=== PATIENT | female | born 1980 | race Caucasian/White ===

== ENCOUNTER 2021-07-17 11:10 | Emergency (ER) | payer SELFPAY ==
--- OUTSIDE RECORDS SUMMARY | 2021-07-17 11:14 | XMS REPORT | Continuity of Care Document ---
:1980 Author Organization [facility] t Address [address] [place] [address] [place] [id number] Care Team Providers Name Role Phone PCP, DOES NOT HAVE A Primary Care Physician Unavailable [place] DO Attending Clinician WASHINGTON Attending Clinician Unavailable Doctor Unassigned, Name Attending Clinician Unavailable PATRICK CARTY Attending Clinician Unavailable GAN Attending Clinician Unavailable PATRICK CARTY Admitting Clinician Unavailable ELVIA Admitting Clinician Unavailable Payers Payer Name Policy Type Policy Number Effective Date Expiration Date S ource Problems Condition Condition Condition Status Onset Resolution Last Treating Co mments Source Name Details Category Date Date Treatment Clinician Date Pneumonia Pneumonia Problem [facility] (LUF/LI V/SA) Strain of Strain of Problem Active [facility] knee [facility] (LUF/LI V/SA) Backache Backache Problem [facility] V/SA) No known No known Disease Unive rs active active ity of problems problems [facility] Allergies, Adverse Reactions, Alerts Allergy Allergy Status Severity Reaction(s) Onset Inactive Treating Comm ents Source Name Type Date Date Clinician Etodolac Propensi Active Hives Univer s ty to -19 ity of adverse 00:00: [place] reaction 00 Medical s Branch Penicill Propensi Active Swelling Univ ers ins ty to 07-16 ity of adverse 00:00: [place] reaction 00 Medical s Branch Methocar Propensi Active Hives Univer s bamol ty to 19 ity of adverse 00:00: [place] reaction 00 Medical s Branch Ceftriax Propensi Active Nausea Univer s one ty to and/or 07-16 ity of adverse Vomiting 00:00: [place] reaction 00 Medical s Branch Sulfa Propensi Active Swelling Univer s (Sulfona ty to 07-16 ity of mide adverse 00:00: [place] Antibiot reaction 00 Medica l ics) s Branch Haloperi Propensi Active Other - See "makes m e Univers dol ty to comments 07-16 angry" ity of Lactate adverse 00:00: [place] reaction 00 Medical s Branch Levoflox Propensi Active Hives Univer s acin ty to 07-16 ity of adverse 00:00: [place] reaction 00 Medical s Branch CEFTRIAX DRUG Active Hives Univers ONE INGREDI -19 ity of 00:00: [place] 00 Medical Branch HALOPERI DRUG Active Other-Cmnt Univ ers DOL INGREDI -19 ity of LACTATE 00:00: [place] 00 Medical Branch METHOCAR DRUG Active Hives Univers BAMOL INGREDI -19 ity of 00:00: [place] 00 Medical Branch PENICILL Drug Active Swelling 0 Univer s INS Class 1-19 ity of 00:00: [place] 00 Medical Branch SULFA Drug Active Swelling 2021-0 Univers (SULFONA Class 1-19 ity of MIDE 00:00: [place] ANTIBIOT 00 Medical ICS) Branch ETODOLAC DRUG Active Hives Univers INGREDI 1-19 ity of 00:00: [place] 00 Medical Branch LEVOFLOX DRUG Active Hives 0 Univers ACIN INGREDI 1-19 ity of 00:00: [place] 00 Medical Branch Sulfa DA Active U [facility] (Sulfona 5[facility]12 [facility] mide 00:00: d Antibiot 00 Medical ics) Center haloperi DA Active U 2020-0 [facility] dol 5-12 [facility] 00:[facility]: d 00 [facility] methocar DA Active U 2020-0 [facility] bamol 5-12 [facility] 00:00: d 00 [facility] Center ceftriax DA Active U 2020-0 [facility] one -12 [facility] 00:00: d 00 [facility] levoflox DA Active U 2020-0 [facility] acin -12 [facility] 00:00: d 00 [facility] Center No Known DA Active U 2020-0 [facility] Allergie -12 [facility] 00:00: d 00 [facility] Center No Known DA Active U 2020-0 [facility] Allergie -12 [facility] 00:[facility]: d 00 [facility] Center Penicill DA Active U UNKOWN 2020-0 [facility] ins -12 [facility] 00:00: d 00 [facility] Sulfa DA Active U UNKOWN 2020-0 [facility] (Sulfona 11-06 [place] mide 00:00: d Antibiot 00 Medical ics) Center haloperi DA Active U UNKOWN 2020-0 [facility] dol -12 [facility] 00:00: d 00 [facility] methocar DA Active U UNKOWN 2020-0 [facility] bamol -12 [place] 00:00: d 00 [facility] ceftriax DA Active U UNKOWN 2020-0 [facility] one - [place] 00:00: d 00 [facility] levoflox DA Active U UNKOWN 2020-0 [facility] acin 5-12 [facility] 00:00: d 00 [facility] Center Penicill DA Active U 2020-0 [facility] ins - [place] 00:00: d 00 [facility] Center NO KNOWN Drug Active Univers ALLERGIE Class ity of S [facility] Levaquin DA Active Unknown [facility] ([facility]LI V/SA) Lodine DA Active Unknown [facility] (LUF/LI V/SA) Penicill DA Active [facility] (LUF/LI V/SA) Robaxin DA Active Unknown [facility] (LUF/LI V/SA) Rocephin DA Active Unknown [facility] (LUF/LI V/SA) Sulfa(Sanchez DA Active Unknown [facility] Antibiot l ics) (LUF/LI V/SA) Haldol DA Active Unknown [facility] (LUF/LI V/SA) Social History Social Habit Start Date Stop Date Quantity Comments Source Exposure to Not sure [facility] SARS-CoV-2 (event) Medica l [place] Sex Assigned At [birth year] [facility] 00:00:00 00:00:00 Medical Branch Smoking Status Start Date Stop Date Source Never sm[facility] (LUF/EULA/SA) Unknown if ever smoked [facility] Medical [place] Medications Ordered Filled Start Stop Current Ordering Indication Dosage Frequency Signature Comments Components Source Medication Medication Date Date Medication? Clinician (SIG) Name Name chlorphenir Yes [id number] 4mg Take 1 Univers amine 4 mg -19 tablet by ity of tablet 00:00: mouth [place] 00 every 6 Medical (six) Branch hours as needed for Allergies or Runny nose. calcium/mag Yes [id number] 1{each} Take 1 Univers nesium/zinc 1-19 Each by ity o f (CALCIUM-MA 00:00: mouth [place] GNESUIUM-ZI 00 daily. Medica l CO) Branch 333-133-5 mg Tab benzonatate Yes [id number] 100mg Take 1 Univers 100 mg -19 capsule by ity of capsule 00:00: mouth 3 [place] 00 (three) Medical times Branch daily as needed for Cough. vitamin 2021- Yes [id number] 1{tbl} Take 1 Univers D3-folic 1-19 -19 tablet by ity o f acid 125 00:00: 05:59 mouth [place] mcg (5,000 00 :00 daily for Medi afua unit)-1 mg 30 days. Branc h Tab prednisone prednisone Yes 40mg [facility] l (LUF/LI V/SA) prednisone prednisone Yes 40mg orally [facility] every [facility] - 00:[facility]: morning [facility] 00 (administe l r with (LUF/LI food or V/SA) milk) 72 HR 72 HR Yes [address] fentanyl fentanyl [facility] - 0.025 MG/HR 0.025 MG/HR M emoria Transdermal Transdermal l System System (LUF/LI V/SA) azithromyci azithromyci Yes 250mg 1xD [facility] n 250 MG n 250 MG [facility] - Oral Tablet Oral Tablet M emoria l (LUF/LI V/SA) azithromyci azithromyci Yes 250mg 1xD [facility] n 250 MG n 250 MG [facility] - Oral Tablet Oral Tablet M emoria l (LUF/LI V/SA) prednisone prednisone Yes 20mg 2xD [facility] 20 MG Oral 20 MG Oral Misael es - Tablet Tablet Memoria l (LUF/LI V/SA) 72 HR 72 HR Yes [address] [facility] fentanyl fentanyl lly every Nanci kes - 0.025 MG/HR 0.025 MG/HR 72 hours Memoria Transdermal Transdermal l System System (LUF/LI V/SA) azithromyci azithromyci Yes 250mg 1xD orally [facility] n 250 MG n 250 MG daily [facility] - Oral Tablet Oral Tablet (Take 2 Memoria tabs at l once on (LUF/LI day one, V/SA) followed by 1 tab daily for the following 4 days.) azithromyci azithromyci Yes 250mg 1xD orally [facility] n 250 MG n 250 MG daily [facility] - Oral Tablet Oral Tablet (Take 2 Memoria tabs at l once on (LUF/LI day one, V/SA) followed by 1 tab daily for the following 4 days.) prednisone prednisone Yes 20mg 2xD orally [address] 20 MG Oral 20 MG Oral times per [facility] - Tablet Tablet day Memoria l (LUF/LI V/SA) Vital Signs Vital Name Observation Time Observation Value Comments Source Systolic blood 2021-07-16 15:47:00 115 mm[facility]Hg[facility] Diastolic blood 2021-07-16 15:47:00 64 mm[Hg] [facility] Heart rate 2021-07-16 15:47:00 88 /min [facility] Body temperature 2021-07-16 15:47:00 36.67 [facility] Respiratory rate 2021-07-16 15:47:00 18 /min [facility] Body height 2021-07-16 15:47:00 152.4 cm [facility] Body weight 2021-07-16 15:47:00 58.968 kg [facility] BMI 2021-07-16 15:47:00 25.39 kg/m2 [facility] Oxygen saturation in 2021-07-16 15:47:00 99 /min [facility] blood by [facility] Pulse oximetry Branch Height 2020-07-06 15:12:00 152.4 CM Weight 2020-07-06 15:12:00 58.96 KG Height 2020 15:29:00 162.56 CM Weight 2020 15:29:00 61.23 KG Body Temperature 2020-07-06 15:12:00 99.7 [degF] [facility] (LUF/EULA/SA) Pulse Rate 2020-07-06 15:12:00 95 /min [facility] (LUF/EULA/SA) Respiratory Rate 2020-07-06 15:12:00 20 /min [facility] (F/EULA/SA) O2% BldC Oximetry 2020-07-06 15:12:00 100 % [facility] (LUF/EULA/SA) BP Systolic 2020-07-06 15:12:00 107 mm[Hg] [facility] (LUF/EULA/SA) BP Diastolic 2020-07-06 15:12:00 74 mm[Hg] [facility] (LUF/EULA/SA) Height 2020-07-06 15:12:00 60 [in_i] [facility] (LUF/EULA/SA) Weight 2020-07-06 15:12:00 130 [lb_av] [facility] (LUF/EULA/SA) BMI (Body Mass 2020-07-06 15:12:00 25.5 kg/m2 [facility] (LUF/EULA/SA) Body Temperature 2020 15:29:00 98.9 [degF] [facility] (LUF/EULA/SA) Pulse Rate 2020 15:29:00 90 /min [facility] (LUF/EULA/SA) Respiratory Rate 2020 15:29:00 19 /min [facility] (LUF/EULA/SA) O2% BldC Oximetry 2020 15:29:00 100 % [facility] ([facility]) BP Systolic 2020 15:29:00 108 mm[Hg] [facility] (LUF/EULA/SA) BP Diastolic 2020 15:29:00 74 mm[Hg] [facility] (LUF/EULA/SA) Height 2020 15:29:00 64 [in_i] [facility] (LUF/EULA/SA) Weight 2020 15:29:00 135 [lb_av] [facility] (LUF/EULA/SA) BMI (Body Mass 2020 15:29:00 23.3 kg/m2 [facility] (LUF/EULA/SA) Procedures Procedure Date / Time Performed Performing Clinician [facility] e NOTICE OF PRIVACY 2021-07-16 15:43:11 Doctor Unassigned, No Univ [facility] PRACTICES Name [facility] CONSENT/REFUSAL FOR 2021-07-16 15:39:54 Doctor Unassigned, No [facility] DI[facility]IS AND Name Medical Branch TREATMENT Encounters Start End Encounter Admission Attending Care Care Encounter Source Date/Time Date/Time Type Type Clinicians Facility Department ID 2020-11-06 Inpatient [facility] [id number] [facility] 07:23:00 [id number] [facility] 2021-07-16 2021-07-16 Emergency KEILY [place] [id number] Univers 09:47:00 10:23:00 Barbi SUBRAMANIAN [id number] i ty [facility] [id number] [facility] [id number] [facility] 084 Branch 2021-07-16 2021-07-16 Emergency X KEILY W[place] ERT [id number] Univers 09:47:00 10:23:00 BARBI [facility] 2021-07-16 2021-07-16 Orders Doctor JOSE [id number] Univers 00:00:00 00:00:00 Only Unassigned, SABINE [id number] ity of [facility] [id number] Wade as [id number] [place] [address] Branch 2020-07-06 2020-07-06 PNEUMONIA 1 AURA CARTY [facility] [id number] [facility] [address] 15:08:00 17:31:00 UNSPECIFIE [facility] WHALEN Lukes - D ORGANISM N, [address] [place], (LUF[place] [address] 2020-07-06 2020-07-06 Inpatient [facility] [id number] [facility] [address] 00:00:00 00:00:00 [facility] [id number] [facility] - N, [id number] [place]PASS, [place] [address] 2020-07-06 2020-07-06 Inpatient [facility] [id number] [facility] St 00:00:00 00:00:00 [facility] [id number] [facility] - N, [id number] l [place]PASS, ([place] [address] 2020 2020 JAMISON DAO [facility] [id number] [facility] [address] 15:18:00 17:04:00 [facility] WHALEN L ukes - PHARYNGITI N, [address] [place], (LUF/[place] [address] Results Test Description Test Time Test Comments Results Result Sour e Comments - CT ABD PELVIS 2020-11-06 W/CONT 09:53:00 [facility] 1980 Sex: F FAX: Jackson Schneider MD [place]: St: REG Name: LETICIA DAIGLE [facility] : 1980 Age/S: 40/F [address] [facility] Unit: [id number] [place]: [place]: [place] [id number] Acct: [id number] Dis Date: Status: REG ER PHONE #: [phone] Exam Date: 11/06/2020 0935 FAX #: [phone] Reason: Abd LUQ pain EXAMS: CPT CODE: [id number] CT ABD PELVIS W/CONT [id number] LOCATION: T18 EXAM: CT ABDOMEN AND PELVIS WITH CONTRAST INDICATION: Left upper quadrant abdominal pain COMPARISON: None. TECHNIQUE: Multiple CT images of the abdomen and pelvis were obtained with reconstructions in the coronal and sagittal planes. 100 ml of Isovue 300 was given intravenously. Up-to-date CT equipment and radiation dose reduction techniques were utilized. Automatic exposure control was utilized. FINDINGS: Lung bases are clear. Liver and spleen are normal in appearance. Adrenal glands and pancreas normal. Gallbladder removed. No biliary distention. Portal vasculature is patent. Kidneys enhance symmetrically. No focal abnormality or hydronephrosis. There is no hydroureter. Urinary bladder is normal in appearance. Uterus and adnexal structures are age-appropriate in appearance. Fluid within the right colon concerning for diarrheal process. Appendix is normal. No diverticulosis or evidence of colitis. No bowel obstruction is seen. Abdominal aorta is normal in caliber. IVC is normal. Bones are intact. Peripheral soft tissues are unremarkable. Posterior fixation of L4-L5 without complication. IMPRESSION: Fluid within the right colon concerning for diarrheal process. No diverticulosis or evidence of colitis. at 0953 Reported and signed by: Morteza Anthony M.D. PAGE 1 Signed Report (CONTINUED) FAX: Jackson Schenider MD [place]: St: REG Name: LETICIA DAIGLE [facility] : 1980 Age/S: 40/F [address] [facility] Unit: [id number] Loc: [place], [place]: [place] [id number] Acct: [id number] Dis Date: Status: REG ER PHONE #: [phone] Exam Date: 11/06/2020 0935 FAX #: [phone] Reason: Abd LUQ pain EXAMS: CPT CODE: [id number] CT ABD PELVIS W/CONT [id number] <Continued> CC: Jackson Schneider MD Technologist: FEDERICO MUNIZ Trnsoilard Dt/Tm: 11/06/2020 (0953) [email or web address] Orig Print D/T: S: 11/06/2020 (0956 PAGE 2 Signed Report DRUGS OF ABUSE SCREEN UR 2020-11-06 09:34:00 Test Item Value Reference Range Interpretation Comme nts URN COCAINE (test code = COCAURN) NEGATIVE NEGATIVE Cocaine cut-off concentration: 300 ng/mL URN CANNABINOIDS (test code = NEGATIVE NEGATIVE Cannabinoids cut-off CANNABURN) concentration: 50 ng/mL URN AMPHETAMINE (test code = NEGATIVE NEGATIVE Amphetamine cut-off AMPHETURN) concentration: 1000 ng/mL URN BARBITURATE (test code = NEGATIVE NEGATIVE Barbiturate cut-off BARBITURN) concentration: 200 ng/mL URN BENZODIAZEPINE (test code = NEGATIVE NEGATIVE Benzodiazepine cut-off BENZOURN) concentration: 200 ng/mL URN OPIATES (test code = NEGATIVE NEGATIVE Opi ates cut-off concentration: OPIATURN) 2000 ng/mL URN PHENCYCLIDINE (PCP) (test NEGATIVE NEGATIVE Phencyclidine(PCP) cut-off code = PHENCURN) concentrati on: 25 ng/ml URN METHADONE (test code = NEGATIVE NEGATIVE M ethadone cut-off concentration: METHAURN) 300 ng/mL URINALYSIS [id number] 09:23:00 Test Item Value Reference Range Interpretation Comments UA COLOR (test code = COLU) YELLOW UA APPEARANCE (test code = SLHZY APPU) UA GLUCOSE DIPSTICK (test NORMAL mg/dl NORMAL code = DGLUU) UA BILIRUBIN DIPSTICK (test NEGATIVE mg/dL NEGATIVE code = BILU) UA KETONE DIPSTICK (test NEGATIVE mg/dl NEGATIVE code = KETU) UA SPECIFIC GRAVITY (test 1.015 1.000-1.030 code = SGU) UA BLOOD DIPSTICK (test NEGATIVE Wesley/micL NEGATIVE code = ZOFIA) UA PH DIPSTICK (test code = 6.0 5.0-9.0 ANALY) UA PROTEIN DIPSTICK (test NEGATIVE mg/dl NEGATIVE code = PROU) UA UROBILINIOGEN DIPSTICK NORMAL mg/dl NORMAL (test code = URO) UA NITRITE DIPSTICK (test NEGATIVE NEGATIVE code = ALBA) UA LEUKOCYTE ESTERASE NEGATIVE Marcelle/micL NEGATIVE DIPSTICK (test code = LEUU) UA WBC (test code = WBCU) NONE SEEN WBC/HPF NONE UA RBC (test code = RBCU) NONE SEEN RBC/HPF 0-3 UA EPITHELIAL CELLS (test 2-5 EPI/HPF 0-3 A code = EPIU) UA BACTERIA (test code = FEW NONE BACU) UR HCG [id number] 09:23:00 Test Item Value Reference Range Interpretation Comments UR HCG QUAL (test code = HCGQLU) NEGATIVE NEGATIVE URINALYSIS [id number] 09:20:00 Test Item Value Reference Range Interpretation Comments UA COLOR (test code = COLU) YELLOW UA APPEARANCE (test code = SLHZY APPU) UA GLUCOSE DIPSTICK (test NORMAL mg/dl NORMAL code = DGLUU) UA BILIRUBIN DIPSTICK (test NEGATIVE mg/dL NEGATIVE code = BILU) UA KETONE DIPSTICK (test NEGATIVE mg/dl NEGATIVE code = KETU) UA SPECIFIC GRAVITY (test 1.015 1.000-1.030 code = SGU) UA BLOOD DIPSTICK (test NEGATIVE Wesley/micL NEGATIVE code = ZOFIA) UA PH DIPSTICK (test code = 6.0 5.0-9.0 ANALY) UA PROTEIN DIPSTICK (test NEGATIVE mg/dl NEGATIVE code = PROU) UA UROBILINIOGEN DIPSTICK NORMAL mg/dl NORMAL (test code = URO) UA NITRITE DIPSTICK (test NEGATIVE NEGATIVE code = ALBA) UA LEUKOCYTE ESTERASE NEGATIVE Marcelle/micL NEGATIVE DIPSTICK (test code = LEUU) UA WBC (test code = WBCU) WBC/HPF NONE UA RBC (test code = RBCU) RBC/HPF 0-3 UA EPITHELIAL CELLS (test EPI/HPF 0-3 code = EPIU) UA BACTERIA (test code = NONE BACU) UR HCG [id number] 09:20:00 Test Item Value Reference Range Interpretation Comments UR HCG QUAL (test code = HCGQLU) NEGATIVE NEGATIVE URINALYSIS [id number] 09:19:00 Test Item Value Reference Range Interpretation Comments UA COLOR (test code = COLU) UA APPEARANCE (test code = APPU) UA GLUCOSE DIPSTICK (test code = mg/dl NORMAL DGLUU) UA BILIRUBIN DIPSTICK (test code = mg/dL NEGATIVE BILU) UA KETONE DIPSTICK (test code = mg/dl NEGATIVE KETU) UA SPECIFIC GRAVITY (test code = 1.000-1.030 SGU) UA BLOOD DIPSTICK (test code = ZOFIA) Wesley/micL NEGATIVE UA PH DIPSTICK (test code = ANALY) 5.0-9.0 UA PROTEIN DIPSTICK (test code = mg/dl NEGATIVE PROU) UA UROBILINIOGEN DIPSTICK (test mg/dl NORMAL code = URO) UA NITRITE DIPSTICK (test code = NEGATIVE ALBA) UA LEUKOCYTE ESTERASE DIPSTICK Marcelle/micL NEGATIVE (test code = LEUU) UA WBC (test code = WBCU) WBC/HPF NONE UA RBC (test code = RBCU) RBC/HPF 0-3 UA EPITHELIAL CELLS (test code = EPI/HPF 0-3 EPIU) UA BACTERIA (test code = BACU) NONE UR HCG [id number] 09:19:00 Test Item Value Reference Range Interpretation Comments UR HCG QUAL (test code = HCGQLU) NEGATIVE NEGATIVE BASIC METABOLIC [id number] 09:05:00 Test Item Value Reference Range Interpretation Comments SODIUM (test code = NA) 136 mmol/l 134.0-147.0 N POTASSIUM (test code = K) 4.0 mmol/L 3.6-5.2 N CHLORIDE (test code = CL) 105 mmol/l 98.0-107.0 N CARBON DIOXIDE (test code = CO2) 19.2 mmol/l 21.0-33.0 L ANION GAP (test code = GAP) 15.8 0-20 N GLUCOSE (test code = GLU) 95 mg/dl 70.0-110.0 N BLOOD UREA NITROGEN (test code = 12 mg/dl 7.0-18.0 N BUN) CREATININE (test code = CREAT) 0.76 mg/dL 0.60-1.30 N GFR NON BLACK (test code = 89 mL/min 95-105 L GFRNONBLACK) GFR BLACK (test code = GFRBLACK) 108 mL/min 115-127 L CALCIUM (test code = CA) 8.5 mg/dl 8.0-10.5 N HEPATIC FUNCTION PANEL [id number] 09:05:00 Test Item Value Reference Range Interpretation Comments TOTAL PROTEIN (test code = PROT) 7.1 gm/dL 6.4-8.2 N ALBUMIN (test code = ALB) 3.9 gm/dl 3.2-4.7 N BILIRUBIN TOTAL (test code = BILT) 0.4 mg/dl 0.0-1.0 N BILIRUBIN DIRECT (test code = 0.1 mg/dl 0.0-0.3 N BILD) SGOT/AST (test code = AST) 8 Units/L 15-37 L SGPT/ALT (test code = ALT) 22 Units/L 12.0-78.0 N ALKALINE PHOSPHATASE TOTAL (test 53 Units/L 50.0-136.0 N code = ALKP) [id number] 09:05:00 Test Item Value Reference Range Interpretation Comments LIPASE (test code = LIP) 129 Units/L 65.0-230.0 N [id number] 09:05:00 Test Item Value Reference Range Interpretation Comments TROPONIN-I (test <0.02 NG/ML 0.00-0.06 N REFERENCE R RUFINO code = TROPI) TROPONIN I HEA LTHY INDIVIDUALS: < 0.06 ng/mL R/O ISCHE ELIO: 0.07 - 0.60 ng/ mL CUT-OFF RANGE F OR AMI: 0.60 - 1.5 ng/m L CBC W/AUTO [id number] 08:24:00 Test Item Value Reference Range Interpretation Comments WHITE BLOOD CELL (test code = 8.1 K/mm3 4.5-11.0 N WBC) RED BLOOD CELL (test code = 3.95 M/mm3 3.80-5.20 N RBC) HEMOGLOBIN (test code = HGB) 12.4 gm/dL 12.0-16.0 N HEMATOCRIT (test code = HCT) 37.7 % 36.0-48.0 N MEAN CELL VOLUME (test code = 95.4 UM3 82.0-99.0 N MCV) MEAN CELL HGB (test code = MCH) 31.4 UUG 25.5-32.5 N MEAN CELL HGB CONCETRATION 32.9 gm/dL 29.0-35.5 N (test code = MCHC) RED CELL DISTRIBUTION WIDTH 13.9 % 11.5-15.0 N (test code = RDW) RED CELL DISTRIBUTION WIDTH SD 49.2 fL 34.8-50.2 N (test code = RDW-SD) PLATELET COUNT (test code = 360 K/mm3 150-400 N PLT) MEAN PLATELET VOLUME (test code 9.0 fl 7.4-10.4 N = MPV) NEUTROPHIL % (test code = NT%) 69.2 % 49.0-76.0 N IMMATURE GRANULOCYTE % (test 0.4 % 0.0-0.4 N code = IG%) LYMPHOCYTE % (test code = LY%) 23.3 % 23.0-38.0 N MONOCYTE % (test code = MO%) 5.2 % 1.0-10.0 N EOSINOPHIL % (test code = EO%) 1.2 % 1.0-5.0 N BASOPHIL % (test code = BA%) 0.7 % 0.0-1.0 N NUCLEATED RBC % (test code = 0.0 % 0.0-0.1 N NRBC%) NEUTROPHIL # (test code = NT#) 5.6 K/mm3 2.4-6.3 N IMMATURE GRANULOCYTE # (test 0.03 x10 3/uL 0.00-0.07 N code = IG#) LYMPHOCYTE # (test code = LY#) 1.9 K/mm3 1.2-4.0 N MONOCYTE # (test code = MO#) 0.4 K/mm3 0.0-0.6 N EOSINOPHIL # (test code = EO#) 0.1 K/MM3 0.0-0.7 N BASOPHIL # (test code = BA#) 0.1 K/mm3 0.0-0.2 N NUCLEATED RBC # (test code = 0.00 X10 3uL 0.00-0.01 N NRBC#) PROTHROMBIN [id number] 08:21:00 Test Item Value Reference Range Interpretation Comments PROTHROMBIN TIME 11.1 SECONDS 9.9-12.8 N PATIENT (test code = PTP) INTERNATIONAL NORMAL 0.9 0.89-1.14 N THE INR IS TO BE USED RATIO (test code = ONLY FOR MONITORING INR) ORAL ANTICOAGULANTTH ERAPY. THE FOLLOWING A RE SUGGESTED RANGE S FROM [facility]IGN[facility] LEGE OF CHEST PHYSICIANS:KELLI CATION INR VALUEPROPHYLAXI S OF VENOUS THROMBOS IS (ORTHOPEDIC EULA MARRY) 2.0 - 3.0PROP HYLAXIS OF VENOUS THROM BOSIS (OTHER THAN HIG H-RISK SURGERY) 2.0 - 3.0TRE ATMENT OF DEEP VEIN THROMBOSIS OR PULMONARY EMBOL ISM 2.0 - 3.0PREV ENTION OF SYSTEMIC EMB OLISM TISSUE HEART VA LVES 2.0 - 3.0 AC VICKEY MYOCARDIAL INFA RCTION (TO PREVENT SYSTEMIC EMBOLI SM) 2.0 - 3.0 ACUTE MYOCARDIA L INFARCTION (TO PREVENT RECURRE NT INFARCT) 2.5 - 3.0 VALV ULAR HEART DISEASE 2.0 - 3.0 ATRIAL FIBRILATION 2.0 - 3.0BILEAFLET MECHANICAL VALV E IN AORTIC POSITION 2.0 - 3.0MECHAN ICAL PROSTHETIC VALV ES (HIGH RISK) 2.5 - 3.5PRESEN CE OF LUPUS ANTICOAGU LANT OR ANTIPHOSPHOLIP ID ANTIBODIES 2.5 - 3 .5 THROMBOPLASTIN TIME [id number] 08:21:00 Test Item Value Reference Range Interpretation Comments THROMBOPLASTIN TIME 31.80 SECONDS 25.86-36.07 N [facility] PARTIAL (test code = Therape utic Range - PTT) APTT of 55.8-85 .4 secondscorrelat es with plasma heparin concentration o f 0.2-0.4 u/mL Ne w range effective - CORONAVIRUS 2019 CEPHEID [id number] 17:17:00 Test Item Value Reference Range Interpretation Comments FT (test code Negative The Cephied SA RS-CoV-2 = COVID) (qualifier value) reagent is for in vitro use under FDA Emergency Use Authorization o nly. For questions regarding your test results, please contact the [facility] at [phone]. FLU [id number] 17:15:00 Test Item Value Reference Range Interpretation Comments Flu A Screen (test Negative Negative N EFFECTIVE 06/16/2013 - A code = FLUA) method change h as occurred. A mo lecular method for Flu testing will replace th e current method. Both F nanci A and Flu B will be t ested and results will co ntinue to be listed as "N egative or Positive". Whi le this method is more specific in the detectio n of both strains, confir matory testing is avai lable upon request. ldh Flu B Screen (test Negative Negative N EFFECTIVE 06/16/2013 - A code = FLUB) method change h as occurred. A mo lecular method for Flu testing will replace th e current method. Both F nanci A and Flu B will be t ested and results will co ntinue to be listed as "N egative or Positive". Whi le this method is more specific in the detectio n of both strains, confir matory testing is avai lable upon request. ldh URINALYSIS WITH [id number] 16:46:00 Test Item Value Reference Range Interpretation Comments Color (test code = UCOLR) Dk. Yellow Clarity (test code = UCLAR) Sl Cloudy Glucose (test code = UGLUC) NEGATIVE NEGATIVE N Bilirubin (test code = UBILI) NEGATIVE NEGATIVE N Ketones (test code = UKET) NEGATIVE NEGATIVE N Specific [place] (test code = 1.015 1.005-1.030 A USPGR) Blood (test code = UBLD) LARGE NEGATIVE A PH (test code = UPH) 7.5 4.5-8.0 A Protein (test code = UPROT) NEGATIVE NEGATIVE N Urobilinogen (test code = U UROB) 0.2 >0.2 N Nitrite (test code = UNITR) NEGATIVE NEGATIVE N Leukocyte Esterase (test code = NEGATIVE NEGATIVE N ULEUK) WBC (test code = WBCUR) 0-5 0-5 N RBC (test code = RBCUR) 30-40 0-5 A Epithial Cells (test code = U EPI) 10-20 0-10 A Bacteria (test code = UBACT) 1+ None Seen,Trace A XR CHEST AP/PA 1 [id number] 16:43:29 [facility] ([facility]/[place])Name: LETICIA DAIGLE : [id number] Sex: F EXAMINATION: XR CHEST AP/PA 1 VIEWINDICATION: [id number]: PneumoniaCOMPARISON: Chest x-ray on the May 17, 2014.FINDINGS:TUBES and LINES: None.LUNGS: Normal lung volumes. There is hazy opacification of bilateral lungbases.PLEURA: No pleural effusion or pneumothorax.HEARTAND MEDIASTINUM: The cardiomediastinal silhouette is unremarkable.BONES AND SOFT TISSUES: No acuteosseous lesion. Soft tissues areunremarkable.UPPER ABDOMEN: No free air under the diaphragm.IMPRESSION:Hazy opacification of bilateral lung bases which may represent atelectasisand/or atypical pneumonia in the appropriate clinical context.This final report was electronically signed by Dr Hayden Hill07/06/2020 4:43 PMDictated By: SAIDA GENEBAUDILIOMELBARuddyte: 07/06/2020 16:43FLU [id number] 16:40:00 Test Item Value Reference Range Interpretation Comments Flu A Screen (test Negative Negative N EFFECTIVE 06/16/2013 - A code = FLUA) method change h as occurred. A mo lecular method for Flu testing will replace th e current method. Both F nanci A and Flu B will be t ested and results will co ntinue to be listed as "N egative or Positive". Whi le this method is more specific in the detectio n of both strains, confir matory testing is avai lable upon request. ldh Flu B Screen (test Negative Negative N EFFECTIVE 06/16/2013 - A code = FLUB) method change h as occurred. A mo lecular method for Flu testing will replace th e current method. Both F nanci A and Flu B will be t ested and results will co ntinue to be listed as "N egative or Positive". Whi le this method is more specific in the detectio n of both strains, confir matory testing is avai lable upon request. ldh STREP A [id number] 16:32:00 Test Item Value Reference Range Interpretation Comments Strep A Screen Positive Negative A TESTING IS PE RFORMED ON THE (test code = SAS) Before the Call [employer] TO D ETECT GROUP A STREPTOCOCCAL A NTIGENS FROM THROAT SWABS OF SYMPTOMATIC PATIENTS. ALL NEGATIVE RESULTS ARE CON FIRMED BY BACTERIAL CULTU RE BECAUSE NEGATIVE RESULT S DO NOT PRECLUDE GROUP A STREP INFECTION AND S HOULD NOT BE USED THE EBONY E BASIS FOR TREATMENT. THI S TEST IS INTENDED FOR SD OFESSIONAL AND LABORATORY USE AN AID IN THE DIAGNOSI S OF GROUP A STREPTOCOCCAL I NFECTION.
[2021-07-17] MEDS ORDERED: NA CHLORIDE 0.9% 1,000 ML ONE ×2 (11:51→14:05)
[2021-07-17 12:20] LABS: SARS-COV-2 RT PCR NEGATIVE (NEGATIVE)
[2021-07-17 12:27] LABS: Absolute Lymphocytes (CBC) 2.7 K/uL (0.7-4.9); Hematocrit 42.6 % (36.0-45.0); MPV 7.2 fL (7.6-11.3); RBC Red Blood Cell Count 4.63 M/uL (3.86-4.86)
[2021-07-17 12:31] LABS: Protime INR 0.95
[2021-07-17] MEDS ORDERED: ACETAMINOPHEN 325 MG TABLET ONE (12:56)
--- NOTE | 2021-07-17 13:06 | RAD REPORT ---
EXAM DESCRIPTION: RAD - Chest Single View - 07/17/2021 12:37 pm CLINICAL HISTORY: Cough;Dyspnea Chest pain. COMPARISON: No comparisons FINDINGS: Portable technique limits examination quality. Mild prominence to the interstitial lung markings suggesting mild viral infection. The heart is zhao l in size. No displaced fractures.
[2021-07-17 13:07] LABS: Albumin 3.9 g/dL (3.4-5.0); Bilirubin Direct 0.1 mg/dL (0-0.2); Bilirubin Total 0.7 mg/dL (0.2-1.0); Magnesium 2.3 mg/dL (1.8-2.4); Potassium 3.8 mmol/L (3.5-5.1); Protein, Total 7.9 g/dL (6.4-8.2); Troponin High Sensitivity 4.3 pg/mL (<58.9)
--- NOTE | 2021-07-17 13:41 | RAD REPORT ---
EXAM DESCRIPTION: CT - Chest For Pe Angio - 07/17/2021 1:30 pm CLINICAL HISTORY: Chest pain. Chest pain;Dyspnea COMPARISON: No comparisons TECHNIQUE: CT angiogram of the pulmonary arteries was performed with MIP. All CT scans are performed using dose optimization technique as appropriate and may include automated exposure control or mA/KV adjustment according to patient size. FINDINGS: No evidence of pulmonary thromboembolism. No acute aortic finding demonstrated. The lungs are clear. Mild COPD suspected. No significant pericardial or pleural fluid. No concerning bony finding. Cholecystectomy clips. IMPRESSION: No evidence of pulmonary thromboembolism. No acute lung findings.
[2021-07-17] MEDS ORDERED: ONDANSETRON 4 MG/2 ML VIAL ONE (14:04)
[2021-07-17] MEDS ORDERED: MORPHINE 2 MG/ML SYR ONE (14:04)
[2021-07-17] MEDS ORDERED: ASPIRIN EC 81 MG TAB PO ONE (14:05)
--- NOTE | 2021-07-17 14:27 | ER ---
Nurse's Notes [facility] Name: Eveline Griffith Age: 41 yrs Sex: Female : 1980 Arrival Date: 07/17/2021 Time: 11:12 Bed 19 Private MD: Diagnosis: Chest pain, unspecified;COPD/ Chronic obstructive pulmonary disease, unspecified Presentation: 07/17 11:18 Chief complaint: Patient states: SOB and painful breathing for 2 days, worse on R side. ll1 No known fever. Slight dry cough. Coronavirus screen: Vaccine status: Patient reports being unvaccinated. Client denies travel out of the [place] in the last 14 days. cough unrelated to allergies, difficulty breathing, shortness of breath, Client presents with at least one sign or symptom that may indicate coronavirus-19. Standard/surgical mask placed on the client. Ebola Screen: Patient denies travel to an Ebola-affected area in the 21 days before illness onset. Initial Sepsis Screen: Does the patient meet any 2 criteria? No. Patient's initial sepsis screen is negative. Does the patient have a suspected source of infection? Yes: Productive cough/pneumonia. Risk Assessment: Do you want to hurt yourself or someone else? Patient reports no desire to harm self or others. Onset of symptoms was July 16, 2021. 11:18 Method Of Arrival: Ambulatory ll1 11:18 Acuity: WILTON 4 ll1 11:27 Acuity: WILTON 3 iw Triage Assessment: 13:52 Respiratory: Onset: The symptoms/episode began/occurred yesterday, the patient has eo2 moderate shortness of breath. 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 - Social history:: Smoking status: Patient reports the use of cigarette tobacco products, smokes one-half pack cigarettes per day. - Family history:: not pertinent. Screenin:30 Abuse screen: Denies threats or abuse. Denies injuries from another. Nutritional eo2 screening: No deficits noted. Tuberculosis screening: No symptoms or risk factors identified. Fall Risk None identified. Assessment: 12:30 General: Appears in no apparent distress. Behavior is calm, cooperative. Pain: eo2 Complains of pain in chest and right breast and anterior aspect of right upper chest. Neuro: Level of Consciousness is awake, alert, obeys commands, Reports headache. Cardiovascular: Reports chest pain, Heart tones S1 S2 Rhythm is sinus rhythm. Respiratory: Reports shortness of breath onset yesterday, states "my lungs feel like a squeezed coke can, it hurts when I breathe" Airway is patent Respiratory effort is even, unlabored, Breath sounds are clear in left posterior upper lobe and right posterior upper lobe Breath sounds are diminished in left posterior lower lobe and right posterior lower lobe. GI: No deficits noted. No signs and/or symptoms were reported involving the gastrointestinal system. Musculoskeletal: No deficits noted. No signs and/or symptoms reported regarding the musculoskeletal system. Vital Signs: 11:18 Weight 58.97 kg; Height 5 ft. 0 in. (152.40 cm); Pain 6/10; ll1 11:21 BP 116 / 73; Pulse 72; Temp 98.8; Pulse Ox 100% ; tp1 12:30 BP 94 / 51; Pulse 65; Resp 19; Pulse Ox 98% ; Pain 8/10; eo2 13:15 BP 98 / 62; Pulse 67; Resp 17; Pulse Ox 100% ; eo2 14:00 BP 98 / 58; Pulse 60; Resp 16; Pulse Ox 100% ; Pain 8/10; eo2 14:20 BP 98 / 48 Supine; Pulse 63 LA; tp1 14:22 BP 103 / 75 Sitting; Pulse 61 RA; tp1 14:22 BP 103 / 69 Standing; Pulse 65 RA; tp1 15:15 BP 103 / 60; Pulse 69; Resp 14; Pulse Ox 100% ; Pain 3/10; eo2 11:18 Body Mass Index 25.39 (58.97 kg, 152.40 cm) ll1 Vitals: 12:30 Cardiac Rhythm Assessment Regular. eo2 ED Course: 11:12 Patient arrived in ED. ds1 11:18 Topher Cullen MD is Attending Physician. heather 11:18 Arm band placed on Patient placed in an exam room, on a stretcher. ll1 11:19 Triage completed. ll1 11:21 Bed in low position. Call light in reach. tp1 11:32 Patient has correct armband on for positive identification. Warm blanket given. Pulse mh5 ox on. NIBP on. 12:06 Emily Thacker, RN is Primary Nurse. eo2 12:07 Inserted saline lock: 20 gauge in left antecubital area, using aseptic technique. Blood tp1 collected. 12:07 EKG done, by ED staff. tp1 12:22 Inserted saline lock: 22 gauge in right antecubital area, using aseptic technique. tp1 Blood collected. 12:24 CBC with Automated Diff Sent. tp1 12:24 Basic Metabolic Panel Sent. tp1 12:30 No provider procedures requiring assistance completed. eo2 12:37 XRAY Chest (1 view) In Process Unspecified. EDMS 13:30 CT Chest For PE Angio In Process Unspecified. EDMS 13:52 Troponin High Sensitivity: now Sent. tp1 13:53 Initial lab(s) drawn, by me, sent to lab. tp1 15:45 IV discontinued, intact. eo2 15:46 Blood Culture Adult (2) Sent. eo2 15:47 CBC with Diff Sent. eo2 15:47 Basic Metabolic Panel Sent. eo2 Administered Medications: 11:54 Drug: NS 0.9% 1000 ml Route: IV; Rate: 125 ml/hr; Site: left antecubital; ll1 15:42 Follow up: Response: No adverse reaction; IV Status: Order to discontinue infusion; IV eo2 Intake: 300ml 12:59 Drug: Tylenol 650 mg Route: PO; eo2 14:14 Follow up: Response: Pain is unchanged, physician notified eo2 14:40 Drug: NS 0.9% 1000 ml Route: IV; Rate: 1 bolus; Site: right antecubital; eo2 15:40 Follow up: Response: No adverse reaction; IV Status: Completed infusion; IV Intake: eo2 1000ml 14:40 Drug: Aspirin Chewable Tablet 162 mg Route: PO; eo2 15:43 Follow up: Response: No adverse reaction eo2 14:40 Drug: morphine 2 mg Route: IVP; Site: right antecubital; eo2 15:43 Follow up: Response: No adverse reaction; Pain is decreased eo2 14:40 Drug: Zofran (Ondansetron) 4 mg Route: IVP; Site: right antecubital; eo2 15:43 Follow up: Response: No adverse reaction; Nausea is decreased eo2 15:03 Drug: predniSONE 40 mg Route: PO; eo2 15:43 Follow up: Response: No adverse reaction eo2 Intake: 15:40 IV: 1000ml; Total: 1000ml. eo2 15:42 IV: 300ml; Total: 1300ml. eo2 Outcome: 14:26 Discharge ordered by . heather 15:45 Discharged to home ambulatory. eo2 15:45 Condition: stable 15:45 Discharge instructions given to patient, Instructed on discharge instructions, follow up and referral plans. medication usage, Demonstrated understanding of instructions, follow-up care, medications, Prescriptions given X 2. 15:47 Patient left the ED. eo2 Signatures: Dispatcher [employer] EDTopher Davis MD MD cha Sanford, Demi ds1 Savanah Alcantara, RN Maria Esther Farah [facility] Ifrah Jmaes RN RN ll1 Nubia Ayala tp1 Emily Thacker RN RN eo2
--- NOTE | 2021-07-17 14:27 | EDPHYS ---
Physician Documentation [facility] Name: Eveline Griffith Age: 41 yrs Sex: Female : 1980 Arrival Date: 07/17/2021 Time: 11:12 Bed 19 Private MD: RADHA Physician Topher Cullen HPI: 07/17 13:17 This 41 yrs old Female presents to ER via Ambulatory with complaints of heather Breathing Difficulty. 13:17 The patient has shortness of breath with light activity. Onset: The symptoms/episode heather began/occurred 2 day(s) ago. Duration: The symptoms are continuous, and are steadily getting worse. The patient's shortness of breath is aggravated by nothing, is alleviated by nothing. Associated signs and symptoms: The patient has no apparent associated signs or symptoms. Severity of symptoms: At their worst the symptoms were mild in the emergency department the symptoms are unchanged. The patient has not experienced similar symptoms in the past. 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 - Social history:: Smoking status: Patient reports the use of cigarette tobacco products, smokes one-half pack cigarettes per day. - Family history:: not pertinent. ROS: 13:17 Constitutional: Negative for fever, chills, and weight loss, Eyes: Negative for injury, heather pain, redness, and discharge, ENT: Negative for injury, pain, and discharge, Neck: Negative for injury, pain, and swelling, Back: Negative for injury and pain, : Negative for injury, bleeding, discharge, and swelling, MS/Extremity: Negative for injury and deformity, Skin: Negative for injury, rash, and discoloration, Neuro: Negative for headache, weakness, numbness, tingling, and seizure, Psych: Negative for depression, anxiety, suicide ideation, homicidal ideation, and hallucinations, Allergy/Immunology: Negative for hives, rash, and allergies, Endocrine: Negative for neck swelling, polydipsia, polyuria, polyphagia, and marked weight changes, Hematologic/Lymphatic: Negative for swollen nodes, abnormal bleeding, and unusual bruising. 13:17 Cardiovascular: Positive for chest pain, of the anterior aspect of right upper chest and right breast. 13:17 Respiratory: Positive for cough, shortness of breath, at rest. Negative for wheezing. Exam: 13:17 Constitutional: This is a well developed, well nourished patient who is awake, alert, heather and in no acute distress. Head/Face: Normocephalic, atraumatic. Eyes: Pupils equal round and reactive to light, extra-ocular motions intact. Lids and lashes normal. Conjunctiva and sclera are non-icteric and not injected. Cornea within normal limits. Periorbital areas with no swelling, redness, or edema. ENT: Nares patent. No nasal discharge, no septal abnormalities noted. Tympanic membranes are normal and external auditory canals are clear. Oropharynx with no redness, swelling, or masses, exudates, or evidence of obstruction, uvula midline. Mucous membranes moist. Neck: Trachea midline, no thyromegaly or masses palpated, and no cervical lymphadenopathy. Supple, full range of motion without nuchal rigidity, or vertebral point tenderness. No Meningismus. Chest/axilla: Normal chest wall appearance and motion. Nontender with no deformity. No lesions are appreciated. Cardiovascular: Regular rate and rhythm with a normal S1 and S2. No gallops, murmurs, or rubs. Normal PMI, no JVD. No pulse deficits. Respiratory: Lungs have equal breath sounds bilaterally, clear to auscultation and percussion. No rales, rhonchi or wheezes noted. No increased work of breathing, no retractions or nasal flaring. Abdomen/GI: Soft, non-tender, with normal bowel sounds. No distension or tympany. No guarding or rebound. No evidence of tenderness throughout. Back: No spinal tenderness. No costovertebral tenderness. Full range of motion. Female : Normal external genitalia. Skin: Warm, dry with normal turgor. Normal color with no rashes, no lesions, and no evidence of cellulitis. MS/ Extremity: Pulses equal, no cyanosis. Neurovascular intact. Full, normal range of motion. Neuro: Awake and alert, GCS 15, oriented to person, place, time, and situation. Cranial nerves II-XII grossly intact. Motor strength 5/5 in all extremities. Sensory grossly intact. Cerebellar exam normal. Normal gait. Psych: Awake, alert, with orientation to person, place and time. Behavior, mood, and affect are within normal limits. 13:17 ECG was reviewed by the Attending Physician. 13:17 Musculoskeletal/extremity: DVT Exam: No signs of deep vein thrombosis. no pain, no swelling, no tenderness, negative Homans' sign noted on exam, no appreciated bluish discoloration, no erythema, no increased warmth. Vital Signs: 11:18 Weight 58.97 kg; Height 5 ft. 0 in. (152.40 cm); Pain 6/10; ll1 11:21 BP 116 / 73; Pulse 72; Temp 98.8; Pulse Ox 100% ; tp1 12:30 BP 94 / 51; Pulse 65; Resp 19; Pulse Ox 98% ; Pain 8/10; eo2 13:15 BP 98 / 62; Pulse 67; Resp 17; Pulse Ox 100% ; eo2 14:00 BP 98 / 58; Pulse 60; Resp 16; Pulse Ox 100% ; Pain 8/10; eo2 14:20 BP 98 / 48 Supine; Pulse 63 LA; tp1 14:22 BP 103 / 75 Sitting; Pulse 61 RA; tp1 14:22 BP 103 / 69 Standing; Pulse 65 RA; tp1 15:15 BP 103 / 60; Pulse 69; Resp 14; Pulse Ox 100% ; Pain 3/10; eo2 11:18 Body Mass Index 25.39 (58.97 kg, 152.40 cm) ll1 MDM: 11:18 Patient medically screened. heather 13:21 Differential diagnosis: Anxiety Reaction CHF exacerbation, pneumonia, Pneumothorax heather reactive airway disease, Unstable Angina. Antibiotic administration: Not indicated. The patient's Wells Deep Vein Thrombosis Score was calculated as follows: No Risks (0 Pts) Total Score: 0-2 Pts- Low Risk. The patient's pulmonary embolism risk score was calculated as follows: Total Score: 3-6 points. This patient was found to be at moderate risk for a pulmonary embolism by using the Well's assessment criteria. Immunization status:. Data reviewed: vital signs, nurses notes, lab test result(s), EKG, radiologic studies, CT scan, plain films. Data interpreted: monitor technician: rate is 65 beats/min, rhythm is regular, Pulse oximetry: on room air is 98 %. Test interpretation: by ED physician or midlevel provider: ECG, plain radiologic studies. Counseling: I had a detailed discussion with the patient and/or guardian regarding: the historical points, exam findings, and any diagnostic results supporting the discharge/admit diagnosis, lab results, radiology results, the need for outpatient follow up, for definitive care, a floor nurse, a family practitioner. 07/17 11:21 Order name: Basic Metabolic Panel [facility] 07/17 11:21 Order name: CBC with Diff [facility] 07/17 11:21 Order name: LFT's; Complete Time: 13:09 [facility] 07/17 11:21 Order name: Magnesium; Complete Time: 13:09 [facility] 07/17 11:21 Order name: NT PRO-BNP; Complete Time: 13:09 [facility] 07/17 11:21 Order name: PT-INR; Complete Time: 12:32 [facility] 07/17 11:21 Order name: Troponin HS; Complete Time: 13:09 [facility] 07/17 11:21 Order name: XRAY Chest (1 view); Complete Time: 13:20 [facility] 07/17 11:21 Order name: COVID-19/FLU A+B/RSV (Document "Date of Onset" if Symptomatic); Complete [facility] Time: 12:32 07/17 11:21 Order name: Blood Culture Adult (2) [facility] 07/17 11:21 Order name: Basic Metabolic Panel; Complete Time: 13:09 [facility] 07/17 11:22 Order name: CBC with Automated Diff; Complete Time: 12:32 [facility] 07/17 12:38 Order name: D-Dimer; Complete Time: 13:09 [facility] 07/17 13:16 Order name: Troponin High Sensitivity: now [facility] 07/17 11:21 Order name: EKG; Complete Time: 11:22 [facility] 07/17 11:21 Order name: Cardiac monitoring; Complete Time: 11:48 [facility] 07/17 11:21 Order name: EKG - Nurse/Tech; Complete Time: 11:48 [facility] 07/17 11:21 Order name: IV Saline Lock; Complete Time: 11:54 [facility] 07/17 11:21 Order name: Labs collected and sent; Complete Time: 11:54 [facility] 07/17 11:21 Order name: O2 Per Protocol; Complete Time: : [facility] 07/17 11:21 Order name: O2 Sat Monitoring; Complete Time: : [facility] 07/17 12:06 Order name: Labs - recollect needed: recollect green,lavender and blue top; Complete bd Time: 12:24 07/17 13:16 Order name: CT Chest For PE Angio; Complete Time: 14:25 [facility] 07/17 14:26 Order name: Orthostatics; Complete Time: 14:58 [facility] EC:17 Rate is 58 beats/min. Rhythm is regular. QRS [place] is Normal. MA interval is normal. QRS heather interval is normal. QT interval is normal. No Q waves. T waves are Normal. No ST changes noted. Clinical impression: Normal ECG, Sinus bradycardia, and No evidence of ischemia. Interpreted by me. Reviewed by me. Administered Medications: 11:54 Drug: NS 0.9% 1000 ml Route: IV; Rate: 125 ml/hr; Site: left antecubital; ll1 15:42 Follow up: Response: No adverse reaction; IV Status: Order to discontinue infusion; IV eo2 Intake: 300ml 12:59 Drug: Tylenol 650 mg Route: PO; eo2 14:14 Follow up: Response: Pain is unchanged, physician notified eo2 14:40 Drug: NS 0.9% 1000 ml Route: IV; Rate: 1 bolus; Site: right antecubital; eo2 15:40 Follow up: Response: No adverse reaction; IV Status: Completed infusion; IV Intake: eo2 1000ml 14:40 Drug: Aspirin Chewable Tablet 162 mg Route: PO; eo2 15:43 Follow up: Response: No adverse reaction eo2 14:40 Drug: morphine 2 mg Route: IVP; Site: right antecubital; eo2 15:43 Follow up: Response: No adverse reaction; Pain is decreased eo2 14:40 Drug: Zofran (Ondansetron) 4 mg Route: IVP; Site: right antecubital; eo2 15:43 Follow up: Response: No adverse reaction; Nausea is decreased eo2 15:03 Drug: predniSONE 40 mg Route: PO; eo2 15:43 Follow up: Response: No adverse reaction eo2 Disposition Summary: 07/17/21 14:26 Discharge Ordered Location: Home heather Problem: new heather Symptoms: have improved heather Condition: Stable heather Diagnosis - Chest pain, unspecified heather - COPD/ Chronic obstructive pulmonary disease, unspecified heather Followup: heather - With: Private Physician - When: 2 - 3 days - Reason: Recheck today's complaints, Continuance of care, Re-evaluation by your physician Discharge Instructions: - Discharge Summary Sheet heather - Nonspecific Chest Pain, Adult heather - Nonspecific Chest Pain, Adult, [id number] heather - Aspirin and Your Heart heather - Chronic Obstructive Pulmonary Disease heather Forms: - Medication Reconciliation Form heather - Thank You Letter heather - Antibiotic Education heather - Prescription Opioid Use heather Prescriptions: - albuterol sulfate 90 mcg/actuation Inhalation HFA aerosol inhaler - inhale 2 puff by INHALATION route every 4-6 hours; 1 Pump; Refills: 0, Product heather Selection Permitted - Medrol (Ronnie) 4 mg Oral Tablets, Dose Pack - take 1 tablet by ORAL route as directed - follow package instructions; 1 heather packet; Refills: 0, Product Selection Permitted Signatures: Dispatcher [employer] Melva Molina Corey, MD MD cha Lewis, Lynsay RN RN ll1 Emily Thacker RN RN eo2
[2021-07-17] MEDS ORDERED: ASPIRIN 81 MG CHEWABLE TABLET ONE (14:53)
[2021-07-17] MEDS ORDERED: predniSONE 20 MG TAB ONE (15:03)
[2021-07-17 17:02] VITALS: O2SAT 100
[2021-07-17 17:07] VITALS: BP 103/60
--- NOTE | 2021-07-19 15:19 | EKG ---
Test Date: 2021-07-17 Test Time: 11:43:05 [employer] MEASUREMENT RESULTS: Intervals: Rate: 58 MD: 138 QRSD: 72 QT: 394 QTc: 386 [place]: P: 65 MD: 138 QRS: 80 T: 59 INTERPRETIVE STATEMENTS: Sinus bradycardia Otherwise normal ECG No previous ECG available for comparison Electronically Signed On 07-19-21 15:15:08 [employer] E[employer] DEVELOPER by Jeff Tapia
[2021-07-21 18:41] VITALS: TEMP 98.8
== END 2021-07-17 15:47 | disposition home or self-care (01) ==
LOC: ER 11:10
DX: J44.9 Chronic obstructive pulmonary disease, unspecified (principal); F17.210 Nicotine dependence, cigarettes, uncomplicated; Z88.0 Allergy status to penicillin; Z88.1 Allergy status to other antibiotic agents; Z88.2 Allergy status to sulfonamides; Z88.5 Allergy status to narcotic agent; Z88.8 Allergy status to other drugs, medicaments and biological substances
CPT/HCPCS: 0241U; 36415; 71045; 71275; 80048; 80076; 83735; 83880; 84484; 85025; 85379; 85610; 87040; 93005; 96361; 96374; 96375; 99285; J2270; J2405; J7030; J7512; Q9967

== ENCOUNTER 2021-11-17 17:57 | Emergency (ER) | payer SELFPAY ==
--- OUTSIDE RECORDS SUMMARY | 2021-11-17 18:00 | XMS REPORT | Continuity of Care Document ---
:1980 Author Organization [facility] t Address [address] [place] [address] Care Team Providers Name Role Phone PCP, DOES NOT HAVE A Primary Care Physician Unavailable Attending Clinician Unavailable PATRICK CATRY Attending Clinician Unavailable ELVIA Attending Clinician Unavailable PATRICK CARTY Admitting Clinician Unavailable ELVIA Admitting Clinician Unavailable Payers Payer Name Policy Type Policy Number Effective Date Expiration Date S ource Problems Condition Condition Condition Status Onset Resolution Last Treating Co mments Source Name Details Category Date Date Treatment Clinician Date Pneumonia P[facility] Problem [facility] (LUF/LI V/SA) Strain of Strain of Problem [facility] (LUF/LI V/SA) Backache [facility] Problem [facility] V/SA) Allergies, Adverse Reactions, Alerts Allergy Allergy Status Severity Reaction(s) Onset Inactive Treating Comm ents Source Name Type Date Date Clinician CEFTRIAX DRUG Active Hives Univers ONE INGREDI 1-19 ity of 00:00: [address] HALOPERI DRUG Active Other-Cmnt Univ ers DOL INGREDI 1-19 ity of LACTATE 00:00: [address] METHOCAR DRUG Active Hives 2022-0 Univers BAMOL INGREDI 1-19 ity of 00:00: [place] [facility] PENICILL Drug Active Swelling 2021-0 Univer s INS Class 1-19 ity of 00:00: [place] 00 [facility] SULFA Drug Active Swelling 2021-0 Univers (SULFONA Class 1-19 ity of MIDE 00:00: [place] ANTIBIOT 00 Medical ICS) Branch ETODOLAC DRUG Active Hives 2021-0 Univers INGREDI 1-19 ity of 00:00: [place] 00 [facility] LEVOFLOX DRUG Active Hives 2021-0 Univers ACIN INGREDI 1-19 ity of 00:00: [place] [facility] ceftriax DA [facility] 2020-0 [facility] levoflox DA Active U 2020[facility]0 [facility] acin [facility]12 [facility] No Known DA Active U 2020-0 [facility] Allergie 5[facility]12 [facility] No Known DA Active U 2020-0 [facility] Allergie 5[facility]12 [facility] Penicill DA Active U UNKOWN 2020-0 [facility] ins 5[facility]12 [facility] Sulfa DA Active U UNKOWN 2020-0 [facility] (Sulfona 5-12 [facility] mide 00:00: d Antibiot 00 Medical ics) Center haloperi DA Active U UNKOWN 2020-0 [facility] dol 5-12 [facility] methocar DA Active U UNKOWN 2020-0 [facility] bamol 5-12 [facility] ceftriax DA Active U UNKOWN 2020-0 [facility] one 5[facility]12 [facility] levoflox DA Active U UNKOWN 2020-0 [facility] acin 5-12 [facility] 00:[facility]: [facility] Penicill DA Active U 2020-0 [facility] ins 5[facility]12 [facility] Sulfa DA Active U 2020-0 [facility] (Sulfona 5-12 [facility] mide 00:00: d Antibiot 00 Medical ics) Center haloperi DA Active U 2020-0 [facility] dol 5-12 [facility]: [facility] methocar DA Active U [facility] bamol 5-12 [facility]: d [facility] NO KNOWN Drug Active Univers ALLERGIE Class ity of S [facility] Levaquin DA Active Unknown [facility] (LUF/LI V/SA) Lodine DA Active [facility] (LUF/LI V/SA) Penicill DA [facility] (LUF/LI V/SA) Robaxin DA Active [facility] (LUF/LI V/SA) Rocephin DA Active Unknown [facility] (LUF/LI V/SA) Sulfa(Sanchez DA Active Unknown [facility] Antibiot l ics) (LUF/LI V/SA) Haldol DA Active Unknown [facility] (LUF/LI V/SA) Social History Smoking Status Start Date Stop Date Source [facility] (LUF/EULA/SA) Medications Ordered Filled Start Stop Current Ordering Indication Dosage Frequency Signature Comments Components Source Medication Medication Date Date Medication? Clinician (SIG) Name Name prednisone prednisone Yes 40mg [facility] (LUF/LI V/SA) prednisone prednisone 0 Yes 40mg orally [facility] 00:00: morning [facility] 00 (administe l r with (LUF/LI food or V/SA) milk) 72 HR 72 HR Yes [address] [facility] fentanyl fentanyl lly every Nanci kes 0.025 MG/HR 0.025 MG/HR 72 hours [facility] Transdermal Transdermal l System System (LUF/LI V/SA) azithromyci azithromyci Yes 250mg 1xD orally [facility] 250 MG n 250 MG daily [facility] Oral Tablet Oral Tablet (Take 2 [facility] tabs at l once on (LUF/LI day one, V/SA) followed by 1 tab daily for the following 4 days.) azithromyci azithromyci Yes 250mg 1xD orally [facility] n 250 MG n 250 MG daily [facility] Oral Tablet Oral Tablet (Take 2 Memoria tabs at l once on (LUF/LI day one, V/SA) followed by 1 tab daily for the following 4 days.) prednisone prednisone Yes 20mg 2xD orally [address] [facility] 20 MG Oral 20 MG Oral times per [facility] Tablet Tablet day [facility] l (LUF/LI V/SA) 72 HR 72 HR Yes [address] fentanyl fentanyl [facility] 0.025 MG/HR 0.025 MG/HR M emoria Transdermal Transdermal l System System (LUF/LI V/SA) azithromyci azithromyci Yes 250mg 1xD [facility] 250 MG n 250 MG [facility] Oral Tablet Oral Tablet M emoria l (LUF/LI V/SA) azithromyci azithromyci Yes 250mg 1xD [facility] n 250 MG n 250 MG [facility] Oral Tablet Oral Tablet M emoria l (LUF/LI V/SA) prednisone prednisone Yes 20mg 2xD [facility] 20 MG Oral 20 MG Oral Misael es Tablet Tablet [facility] (LUF/LI V/SA) Vital Signs Vital Name Observation Time Observation Value Comments Source Height 2020-07-06 15:12:00 152.4 CM Weight 2020-07-06 15:12:00 58.96 KG Height 2020 15:29:00 162.56 CM Weight 2020 15:29:00 61.23 KG Body Temperature 2020-07-06 15:12:00 99.7 [degF] [facility] (LUF/EULA/SA) Pulse Rate 2020-07-06 15:12:00 95 /min [facility] (LUF/EULA/SA) Respiratory Rate 2020-07-06 15:12:00 20 /min [facility] (LUF/EULA/SA) O2% BldC Oximetry 2020-07-06 15:12:00 100 % [facility] (LUF/EULA/SA) BP Systolic 2020-07-06 15:12:00 107 mm[Hg] [facility] (LUF/EULA/SA) BP Diastolic 2020-07-06 15:12:00 74 mm[Hg] [facility] (LUF/EULA/SA) Height 2020-07-06 15:12:00 60 [in_i] [facility] (LUF/EULA/SA) Weight 2020-07-06 15:12:00 130 [lb_av] [facility] (LUF/EULA/SA) BMI (Body Mass Index) 2020-07-06 15:12:00 25.5 kg/m2 [facility] (LUF/EULA/SA) Body Temperature 2020 15:29:00 98.9 [degF] [facility] (LUF/EULA/SA) Pulse Rate 2020 15:29:00 90 /min [facility] (LUF/EULA/SA) Respiratory Rate 2020 15:29:00 19 /min [facility] (F/EULA/SA) O2% BldC Oximetry 2020 15:29:00 100 % [facility] (LUF/EULA/SA) BP Systolic 2020 15:29:00 108 mm[Hg] [facility] (F/EULA/SA) BP Diastolic 2020 15:29:00 74 mm[Hg] [facility] (LUF/EULA/SA) Height 2020 15:29:00 64 [in_i] [facility] (F/EULA/SA) Weight 2020 15:29:00 135 [lb_av] [facility] (LUF/EULA/SA) BMI (Body Mass Index) 2020 15:29:00 23.3 kg/m2 [facility] (F/EULA/SA) Procedures This patient has no known procedures. Encounters Start End Encounter Admission Attending Care Care Encounter Source Date/Time Date/Time Type Type Clinicians Facility Department ID 2020-11-06 Inpatient [facility] NATALIE [id number] [facility] 07:23:00 [id number] [facility] 2021-07-16 2021-07-16 Emergency X KEILY GARZA ERT [id number] Univers 09:47:00 10:23:00 BARBI delgadillo [facility] 2020-07-06 2020-07-06 PNEUMONIA 1 AURA CARTY [facility] [id number] [facility] 15:08:00 17:31:00 UNSPECIFIE [facility] D ORGANISM N, [address] [place], [place]LUF[place] [address] 2020-07-06 2020-07-06 Inpatient [facility] [id number] [facility] 00:[facility] 00:00:00 GEE WHALEN [id number] [facility], [id number] [place]PASS, ([place] [address] 2020-07-06 2020-07-06 Inpatient [facility] [id number] [facility] 00[facility]:00 GEE WHALEN [id number] [facility], [id number] [id number] [place], (LUF[place] [address] 2020 2020 JAMISON DAO [facility] [id number] [facility] [address] 15:18:00 17:04:00 DIANE GEE WHALEN L ukes PHARYNGITI N, [address] [place], [place]LUF[place] [address] Results Test Description Test Time Test Comments Results Result Sourc e Comments - CT ABD PELVIS 2020-11-06 W/CONT 09:53:00 [facility] 1980 Sex: F FAX: Jackson Schneider MD [place]: St: REG Name: LETICIA DAIGLE : 1980 Age/S: 40/F [address] Unit: [id number] [place] [address] Acct: [id number] Dis Date: Status: REG ER PHONE #: [phone] Exam Date: 11/06/2020 0935 FAX #: [phone] Reason: Abd LUQ pain EXAMS: CPT CODE: [id number] CT ABD PELVIS W/CONT 23334 LOCATION: T18 EXAM: CT ABDOMEN AND PELVIS [...] PAGE 1 Signed Report (CONTINUED) FAX: Jackson Schneider MD [place]: St: REG Name: LETICIA DAIGLE : 1980 Age/S: 40/F [address] Unit: [id number] Loc: [place]: [place] [address] Acct: [id number] Dis Date: Status: REG ER PHONE #: [phone] Exam Date: 11/06/2020 0935 FAX #: [phone] Reason: Abd LUQ pain EXAMS: CPT CODE: [id number] CT ABD PELVIS W/CONT [id number] <Continued> CC: Jackson Schneider MD Technologist: FEDERICO MUNIZ Trnmard Dt/Tm: 11/06/2020 (0953) [email or web address] Orig Print D/T: S: 11/06/2020 (0956 PAGE 2 Signed Report DRUGS OF ABUSE SCREEN 2020-11-06 09:34:00 Test Item Value Reference Range [...] ethadone cut-off concentration: [place]) 300 ng/mL URINALYSIS [id number] 09:23:00 Test Item Value Reference Range Interpretation [...] code = FEW NONE BACU) UR HCG [id number] 09:23:00 Test Item Value Reference Range Interpretation Comments UR HCG QUAL (test code = HCGQLU) NEGATIVE NEGATIVE URINALYSIS [id number] 09:20:00 Test Item Value Reference Range Interpretation [...] (test code = NONE BACU) UR HCG [id number] 09:20:00 Test Item Value Reference Range Interpretation Comments UR HCG QUAL (test code = HCGQLU) NEGATIVE NEGATIVE URINALYSIS [id number] 09:19:00 Test Item Value Reference Range Interpretation [...] (test code = BACU) NONE UR HCG [id number] 09:19:00 Test Item Value Reference Range Interpretation Comments UR HCG QUAL (test code = HCGQLU) NEGATIVE NEGATIVE BASIC METABOLIC [id number] 09:05:00 Test Item Value Reference Range Interpretation [...] 8.5 mg/dl 8.0-10.5 N HEPATIC FUNCTION PANEL [id number] 09:05:00 Test Item Value Reference Range Interpretation [...] 53 Units/L 50.0-136.0 N code = ALKP) [id number] 09:05:00 Test Item Value Reference Range Interpretation Comments LIPASE (test code = LIP) 129 Units/L 65.0-230.0 N [id number] 09:05:00 Test Item Value Reference Range Interpretation Comments TROPONIN-I (test <0.02 NG/ML 0.00-0.06 N REFERENCE R RUFINO code = TROPI) TROPONIN I HEA LTHY INDIVIDUALS: < 0.06 ng/mL R/O ISCHE ELIO: 0.07 - 0.60 ng/ mL CUT-OFF RANGE F OR AMI: 0.60 - 1.5 ng/m L CBC W/AUTO [id number] 08:24:00 Test Item Value Reference Range Interpretation [...] 0.00 X10 3uL 0.00-0.01 N NRBC#) PROTHROMBIN [id number] 08:21:00 Test Item Value Reference Range Interpretation Comments PROTHROMBIN TIME 11.1 SECONDS 9.9-12.8 N PATIENT (test code = PTP) INTERNATIONAL NORMAL 0.9 0.89-1.14 N THE INR IS TO BE USED RATIO (test code = ONLY FOR MONITORING INR) ORAL ANTICOAGULANTTH ERAPY. THE FOLLOWING A RE SUGGESTED RANGE S FROM THEANGELITO DE LEON LEGGricelda OF CHEST PHYSICIANS:KELLI CATION INR VALUEPROPHYLAXI S [...] ANTIBODIES 2.5 - 3 .5 THROMBOPLASTIN TIME [id number] 08:21:00 Test Item Value Reference Range Interpretation Comments THROMBOPLASTIN TIME 31.80 SECONDS 25.86-36.07 N [facility] PARTIAL (test code = Therape utic Range - PTT) APTT of 55.8-85 .4 secondscorrelat es with plasma heparin concentration o f 0.2-0.4 u/mL Ne w range effective - CORONAVIRUS 2019 CEPHEID [id number] 17:17:00 Test Item Value Reference Range Interpretation Comments FT (test code Negative The Cephied SA RS-CoV-2 = COVID) (qualifier value) reagent is for in vitro use under FDA Emergency Use Authorization o nly. For questions regarding your test results, please contact the [facility] at [phone]. FLU [id number] 17:15:00 Test Item Value Reference Range Interpretation [...] avai lable upon request. ldh URINALYSIS WITH [id number] 16:46:00 Test Item Value Reference Range Interpretation Comments Color (test code = UCOLR) Dk. Yellow Clarity (test code = UCLAR) Sl Cloudy Glucose (test code = UGLUC) NEGATIVE NEGATIVE N Bilirubin (test code = UBILI) NEGATIVE NEGATIVE N Ketones (test code = UKET) NEGATIVE NEGATIVE N Specific [place] (test code = 1.015 1.005-1.030 A USPGR) [...] None Seen,Trace A XR CHEST AP/PA 1 [id number] 16:43:29 [facility] (LUF/EULA/SA)Name: LETICIA DAIGLE : [id number] Sex: F EXAMINATION: XR CHEST AP/PA 1 VIEWINDICATION: [id number]: PneumoniaCOMPARISON: Chest x-ray on the May 17, [...] final report was electronically signed by Dr Racheal Hill/02/2021 4:43 PMDictated By: RACHEAL CINTRONDate: 07/06/2020 16:43FLU [id number] 16:40:00 Test Item Value Reference Range Interpretation [...] avai lable upon request. ldh STREP A [id number] 16:32:00 Test Item Value Reference Range Interpretation Comments Strep A Screen Positive Negative A TESTING IS PE RFORMED ON THE (test code = SAS) [employer] IA ANALYZ[employer] WHICH EMPLOYS IMMUNOF LUORESCENCE TECHNOLOGY TO D ETECT GROUP A STREPTOCOCCAL A NTIGENS FROM THROAT SWABS OF SYMPTOMATIC PATIENTS. ALL NEGATIVE RESULTS ARE CON FIRMED BY BACTERIAL CULTU RE BECAUSE NEGATIVE RESULT S DO NOT PRECLUDE GROUP A STREP INFECTION AND S HOULD NOT BE USED THE EBONY E BASIS FOR TREATMENT. THI S TEST IS INTENDED FOR ME OFESSIONAL AND LABORATORY USE AN AID IN THE DIAGNOSI S OF GROUP A STREPTOCOCCAL I NFECTION.
--- NOTE | 2021-11-17 20:28 | ER ---
Nurse's Notes [facility] [place] Name: Eveline Griffith Age: 41 yrs Sex: Female : 1980 Arrival Date: 11/17/2021 Time: 17:58 Bed 9 Private MD: Diagnosis: Presentation: 11/17 18:13 Chief complaint: Patient states: "I have been getting these bumps in my nose with jd3 ingrown hairs. well today the right side has swollen and it feels like there is something constantly there in my throat.". Coronavirus screen: At this time, the client does not indicate any symptoms associated with coronavirus-19. Ebola Screen: No symptoms or risks identified at this time. Initial Sepsis Screen: Does the patient meet any 2 criteria? No. Patient's initial sepsis screen is negative. Does the patient have a suspected source of infection? No. Patient's initial sepsis screen is negative. Risk Assessment: Do you want to hurt yourself or someone else? Patient reports no desire to harm self or others. Onset of symptoms was November 16, 2021. 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 Flu vaccine is not up to date. - Social history:: Smoking status: Patient reports the use of cigarette tobacco products, smokes one-half pack cigarettes per day, smokes one pack cigarettes per day. Vital Signs: 18:17 BP 118 / 69; Pulse 83; Resp 18 S; Temp 97.8(TE); Pulse Ox 100% on R/A; Weight 58.97 kg jd3 (R); Height 5 ft. 0 in. (152.40 cm) (R); Pain 8/10; 18:17 Body Mass Index 25.39 (58.97 kg, 152.40 cm) jd3 ED Course: 17:58 Patient arrived in ED. as 18:03 Topher Alejandre PA is PHCP. cp 18:03 Luis Rae DO is Attending Physician. cp 18:15 Triage completed. jd3 18:17 Arm band placed on. jd3 Administered Medications: No medications were administered Outcome: 20:28 Patient left the ED. tw5 Signatures: Tammy Aponte as Topher Alejandre PA PA Castillo Gomez RN RN jNubia Andersen tw5
[2021-11-17 21:00] VITALS: BP 118/69; TEMP 97.8; O2SAT 100
--- NOTE | 2021-11-18 20:28 | EDPHYS ---
Physician Documentation [facility] Name: Eveline Griffith Age: 41 yrs Sex: Female : 1980 Arrival Date: 11/17/2021 Time: 17:58 Bed 9 Private MD: ED Physician Luis Rae HPI: 11/17 18:30 This 41 yrs old Female presents to ER via Ambulatory with complaints of Nose Problem. cp 18:30 The patient presents with pain and swelling. cp 18:30 Onset: The symptoms/episode began/occurred gradually, and became worse today. cp Associated signs and symptoms: Pertinent positives: foreign body sensation in throat. 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 Flu vaccine is not up to date. - Social history:: Smoking status: Patient reports the use of cigarette tobacco products, smokes one-half pack cigarettes per day, smokes one pack cigarettes per day. ROS: 18:35 ENT: Positive for difficulty swallowing, pain and swelling to nasal passages with right cp worse than left, Negative for drainage from ear(s), ear pain, sinus congestion, sinus pain, sore throat, difficulty handling secretions. 18:35 Eyes: Negative for injury, pain, redness, and discharge. cp 18:35 Constitutional: Negative for body aches, chills, fever, poor PO intake. 18:35 Cardiovascular: Negative for chest pain, edema, palpitations. 18:35 Respiratory: Negative for cough, shortness of breath, wheezing. 18:35 Abdomen/GI: Negative for abdominal pain, nausea, vomiting, and diarrhea. 18:35 Neuro: Negative for altered mental status, headache, weakness. 18:35 All other systems are negative. Exam: 18:38 Constitutional: The patient appears in no acute distress, alert, awake, non-toxic, well cp developed, well nourished. 18:38 Head/face: Noted is tenderness, that is moderate, of the nose, Sinus tenderness, is cp not appreciated. 18:38 Eyes: Periorbital structures: appear normal, Conjunctiva: normal, no exudate, no injection, Lids and lashes: appear normal, bilaterally. 18:38 ENT: External ear(s): are unremarkable, Nose: External nose: apex of the nose, mild swelling, tenderness to palpation, Nasal septum: is midline, no septal hematoma appreciated, nasal drainage, is not appreciated, nasal passages appears swollen with right worse than left, no discrete abscess noted. Vital Signs: 18:17 BP 118 / 69; Pulse 83; Resp 18 S; Temp 97.8(TE); Pulse Ox 100% on R/A; Weight 58.97 kg jd3 (R); Height 5 ft. 0 in. (152.40 cm) (R); Pain 8/10; 18:17 Body Mass Index 25.39 (58.97 kg, 152.40 cm) jd3 MDM: 18:40 ED course: Will order CT Sinus to r/o abscess, mass. cp 20:27 Patient medically screened. cp Administered Medications: No medications were administered Disposition: 22:10 Co-signature as Attending Physician, Luis Rae DO I was immediately available on-site ms3 in the Emergency Department for consultation in the care of the patient. . Disposition Summary: 11/17/21 20:28 Eloped Reason: unknown tw5 Signatures: Dispatcher [employer] EDMS Topher Alejandre PA PA cp Davies, Jonathon, RN RN Luis Urena DO DO ms3 Nubia Nichols tw5 Corrections: (The following items were deleted from the chart) 21:56 20:28 before being seen by provider tw5 cp
== END 2021-11-17 20:28 | disposition left against medical advice (07) ==
LOC: ER 17:57
DX: R22.0 Localized swelling, mass and lump, head (principal); Z88.0 Allergy status to penicillin; Z88.8 Allergy status to other drugs, medicaments and biological substances; F17.210 Nicotine dependence, cigarettes, uncomplicated; Z53.21 Procedure and treatment not carried out due to patient leaving prior to being seen by health care provider
CPT/HCPCS: 99281

== ENCOUNTER 2021-12-30 16:10 | Emergency (ER) | payer SELFPAY ==
--- NOTE | 2021-12-30 18:08 | ER ---
Nurse's Notes [facility] Name: Eveline Griffith Age: 41 yrs Sex: Female : 1980 Arrival Date: 12/30/2021 Time: 16:11 Bed 19 Private MD: Diagnosis: Acute upper respiratory infection, unspecified Presentation: 12/30 16:16 Chief complaint: Patient states: Sore throat, hard to breathe. Coronavirus screen: ld1 Client presents with at least one sign or symptom that may indicate coronavirus-19. Standard/surgical mask placed on the client. Ebola Screen: No symptoms or risks identified at this time. Initial Sepsis Screen: Does the patient meet any 2 criteria? No. Patient's initial sepsis screen is negative. Does the patient have a suspected source of infection? No. Patient's initial sepsis screen is negative. Risk Assessment: Do you want to hurt yourself or someone else? Patient reports no desire to harm self or others. Onset of symptoms was December 30, 2021. 16:16 Method Of Arrival: Ambulatory ld1 16:16 Acuity: WILTON 4 ld1 Triage Assessment: 16:17 General: Appears in no apparent distress. comfortable, Behavior is cooperative, ld1 appropriate for age, crying, fussy. Pain: Complains of pain in uvula, left aspect of posterior pharynx and right aspect of posterior pharynx Pain does not radiate. Pain currently is 6 out of 10 on a pain scale. EENT: No signs and/or symptoms were reported regarding the EENT system. Neuro: Level of Consciousness is awake, alert, obeys commands, Oriented to person, place, time, situation. Cardiovascular: Capillary refill < 3 seconds Patient's skin is warm and dry. Respiratory: Airway is patent Respiratory effort is even, unlabored. GI: Abdomen is flat, non-distended. 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 - Social history:: Smoking status: Patient reports the use of cigarette tobacco products, smokes one pack cigarettes per day. Patient/guardian denies using alcohol. Screenin:23 Abuse screen: Denies threats or abuse. Denies injuries from another. Nutritional zavala screening: No deficits noted. Tuberculosis screening: No symptoms or risk factors identified. Fall Risk None identified. Assessment: 18:22 Respiratory: Airway is patent Breath sounds are clear. EENT: Throat is reddened. zavala Vital Signs: 16:16 BP 130 / 106; Pulse 103; Resp 20; Temp 99.3(TE); Pulse Ox 99% on R/A; Weight 58.97 kg; ld1 Height 5 ft. 0 in. (152.40 cm); Pain 0/10; 16:16 Body Mass Index 25.39 (58.97 kg, 152.40 cm) ld1 ED Course: 16:11 Patient arrived in ED. rg4 16:12 Allyn Johnston FNP-C is [facility]. kb 16:12 Luis Rae DO is Attending Physician. kb 16:17 Triage completed. ld1 16:17 Arm band placed on right wrist. ld1 16:32 COVID-19 SARS RT PCR (Document "Date of Onset" if Symptomatic) Sent. ld1 16:32 Flu Sent. ld1 18:22 Minoo Siegel, MEGAN is Primary Nurse. zavala 18:23 Patient has correct armband on for positive identification. Bed in low position. zavala 18:23 No provider procedures requiring assistance completed. Patient did not have IV access zavala during this emergency room visit. Administered Medications: No medications were administered Medication: 18:23 VIS not applicable for this client. zavala Outcome: 18:07 Discharge ordered by . kb 18:23 Discharged to home ambulatory. zavala 18:23 Condition: good 18:23 Discharge instructions given to patient. 18:23 Patient left the ED. zavala Signatures: Allyn Johnston FNP-C FNP-Ckb Garcia, Rubi rg4 Porsche Nash RN RN ld1 Minoo Siegel RN RN zavala Corrections: (The following items were deleted from the chart) 16:19 16:16 Pulse 103bpm; Resp 20bpm; Pulse Ox 99% RA; Temp 99.3F Temporal; 58.97 kg; Height ld1 5 ft. 0 in.; BMI: 25.3; Pain 0/10; ld1
--- NOTE | 2021-12-30 18:08 | EDPHYS ---
Physician Documentation [facility] Name: Eveline Griffith Age: 41 yrs Sex: Female : 1980 Arrival Date: 12/30/2021 Time: 16:11 Bed 19 Private MD: ED Physician Luis Rae HPI: 12/30 17:35 This 41 yrs old Female presents to ER via Ambulatory with complaints of Sore Throat, kb Breathing Difficulty. 17:35 The patient or guardian reports difficulty breathing, flu symptoms, myalgias. Onset: kb The symptoms/episode began/occurred yesterday. Severity of symptoms: At their worst the symptoms were moderate, in the emergency department the symptoms are unchanged. Modifying factors: The symptoms are alleviated by nothing, the symptoms are aggravated by nothing. Associated signs and symptoms: Pertinent positives: sore throat, Pertinent negatives: chest pain, diarrhea, ear ache, fever, nausea, rhinorrhea, vomiting. The patient has not experienced similar symptoms in the past. The patient has not recently seen a physician. 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 - Social history:: Smoking status: Patient reports the use of cigarette tobacco products, smokes one pack cigarettes per day. Patient/guardian denies using alcohol. ROS: 17:31 Constitutional: Negative for fever, chills, and weight loss. kb 17:31 ENT: Positive for sore throat. 17:31 Respiratory: Positive for shortness of breath, Negative for cough, dyspnea on exertion, hemoptysis, orthopnea, pleurisy, sputum production, wheezing. 17:31 All other systems are negative. Exam: 17:35 Constitutional: This is a well developed, well nourished patient who is awake, alert, kb and in no acute distress. Head/Face: Normocephalic, atraumatic. ENT: Moist Mucous membranes Cardiovascular: Regular rate and rhythm with a normal S1 and S2. No gallops, murmurs, or rubs. No pulse deficits. Respiratory: Respirations even and unlabored. No increased work of breathing. Talking in full sentences Abdomen/GI: Soft, non-tender. No distention Skin: Warm, dry with normal turgor. Normal color. MS/ Extremity: Pulses equal, no cyanosis. Neurovascular intact. Full, normal range of motion. Neuro: Awake and alert, GCS 15, oriented to person, place, time, and situation. Moves all extremities. Normal gait. Psych: Awake, alert, with orientation to person, place and time. Behavior, mood, and affect are within normal limits. Vital Signs: 16:16 BP 130 / 106; Pulse 103; Resp 20; Temp 99.3(TE); Pulse Ox 99% on R/A; Weight 58.97 kg; ld1 Height 5 ft. 0 in. (152.40 cm); Pain 0/10; 16:16 Body Mass Index 25.39 (58.97 kg, 152.40 cm) ld1 MDM: 16:18 Patient medically screened. kb 17:34 Data reviewed: vital signs, nurses notes. Data interpreted: Pulse oximetry: on room air kb is 99 %. Interpretation: normal. 18:05 Counseling: I had a detailed discussion with the patient and/or guardian regarding: the kb historical points, exam findings, and any diagnostic results supporting the discharge/admit diagnosis, lab results, the need for outpatient follow up, a family practitioner, to return to the emergency department if symptoms worsen or persist or if there are any questions or concerns that arise at home. 12/30 16:19 Order name: Flu; Complete Time: 17:17 kb 12/30 16:19 Order name: COVID-19 SARS RT PCR (Document "Date of Onset" if Symptomatic); Complete kb Time: 17:48 Administered Medications: No medications were administered Disposition Summary: 12/30/21 18:07 Discharge Ordered Location: Home kb Condition: Stable kb Diagnosis - Acute upper respiratory infection, unspecified kb Followup: kb - With: Emergency Department - When: As needed - Reason: Worsening of condition Followup: kb - With: Private Physician - When: 2 - 3 days - Reason: Recheck today's complaints, Continuance of care, Re-evaluation by your physician Discharge Instructions: - Discharge Summary Sheet kb - Upper Respiratory Infection, Adult, [id number] kb - Viral Respiratory Infection, Xils-En-Higy kb Forms: - Medication Reconciliation Form kb - Thank You Letter kb - Antibiotic Education kb - Prescription Opioid Use kb Signatures: Dispatcher [employer] Allyn Agustin FNP-C FNP-Ckb Dibbern, Lauren, RN RN ld1
[2021-12-30 18:38] VITALS: BP 130/106; TEMP 99.3; O2SAT 99
== END 2021-12-30 18:23 | disposition home or self-care (01) ==
LOC: ER 16:10
DX: J06.9 Acute upper respiratory infection, unspecified (principal); Z20.822 Contact with and (suspected) exposure to COVID-19; F17.210 Nicotine dependence, cigarettes, uncomplicated; Z88.0 Allergy status to penicillin; Z88.1 Allergy status to other antibiotic agents; Z88.2 Allergy status to sulfonamides; Z88.5 Allergy status to narcotic agent; Z88.6 Allergy status to analgesic agent
CPT/HCPCS: 87804; U0003